=== PATIENT | male | born 1955 | race Caucasian/White ===

== ENCOUNTER 2021-03-24 01:29 | Day surgery (SDC) | payer MEDICARE, SELFPAY ==
[2021-03-18 09:01] VITALS: BMI 24.5
--- NOTE | 2021-03-23 17:22 | P.HP_ITS ---
History of Present Illness History of Present Illness Consent: Risks, benefits, and alternatives have been discussed and questions answered. Patient agrees to proceed with procedure. Chief complaint: neoplasm screening Narrative: Krystian Lin is a 65 year old male who was referred for colon cancer screening. His last colonoscopy was about 15 years ago Review of Systems Review of Systems: All systems reviewed & are unremarkable except as noted in HPI and below PMFSH Past Medical History Medical History Anxiety Depression Umbilical hernia Family History Family History Father Acute myocardial infarction Social History Social History Smoking packs per day: 1 Smoking cigarettes per day: 20.0 Years smoked: 5 Smoking pack-years: 5.00 Smoking status: Former smoker Tobacco type: cigarettes Alcohol intake: never Substance use: never Living arrangements: with family Spiritual care concerns: No Meds Home Medications and Allergies Home Medications Medication Instructions Recorded Confirmed Type multivitamin 1 tablet PO DAILY 03/02/21 03/24/21 History Allergies Allergy/AdvReac Type Severity Reaction Status Date / Time No Known Allergies Allergy Mild Verified 03/24/21 07:36 Exam Resp: Auscultation: clear to auscultation bilaterally Cardio: Rate: regular rate Rhythm: regular rhythm GI: GI Palp: Yes Soft to palpation and No Tenderness to palpation present (GI) Assessment and Plan Assessment and plan (1) Screening for colon cancer: Code(s): Z12.11 - Encounter for screening for malignant neoplasm of colon Status: Acute Assessment and Plan: Colonoscopy with possible biopsy or polypectomy or cautery or injection of sub stances.
[2021-03-24 07:37] VITALS: BP 129/75; PULSE 92; RESP 17; TEMP 36.9; O2SAT 98; BMI 25.0
[2021-03-24] MEDS: LACTATED RINGERS 1,000 ML 150 ML IV CONT (07:40)
--- NOTE | 2021-03-24 07:52 | P.PNAN_ITS ---
Anes - Initial Pre Proc Eval Procedure: Operation Date: 03/24/21 08:45 Proposed Procedures p Screening Colonoscopy - Joe Madison MD Date/Time: 03/24/21 07:52 Surgeon: Joe Madison MD Pre Op Diagnosis: neoplasm screening Patient Data Age: 65 Gender: M Height: 1.83 m Weight: 83.8 kg Last Vital Signs Temp 36.9 C 03/24/21 07:37 Pulse 92 03/24/21 07:37 Resp 17 03/24/21 07:37 BP 129/75 03/24/21 07:37 Pulse Ox 98 03/24/21 07:37 Allergies Allergy/AdvReac Type Severity Reaction Status Date / Time No Known Allergies Allergy Mild Verified 03/24/21 07:36 Home Medications Medication Instructions Recorded Confirmed Type multivitamin 1 tablet PO DAILY 03/02/21 03/24/21 History Patient hx anesthesia problems: none Family hx anesthesia problems: none Results Review: All pre-operative results and documents have been reviewed as part of the pre-operative evaluation. [facility]LY [facility] Past Medical History Medical History Anxiety Depression Umbilical hernia Family History Family History Father Acute myocardial infarction Social History Social History Smoking packs per day: 1 Smoking cigarettes per day: 20.0 Years smoked: 5 Smoking pack-years: 5.00 Smoking status: Former smoker Tobacco type: cigarettes Alcohol intake: never Substance use: never Living arrangements: with family Spiritual care concerns: No Anes - Eval Final PreProcedure Day of Procedure 03/24/21 07:52 Patient weight: normal Heart: regular rate and rhythm Lungs: clear to auscultation Airway: Mallampati scale class II Neurological: alert and oriented Last oral intake: >/= 8 hours ASA classification: II Emergent: no Anesthesia type and monitoring: general GIVS and standard monitoring Results Review: All pre-operative results and documents have been reviewed as part of the pre-operative evaluation. Informed Consent: The patient's anesthetic plan and its attendant risks and benefits were discussed with the patient/family/POA. Questions were solicited and answers provided to the satisfaction of the patient/family/POA.
[2021-03-24 09:13] VITALS: BP 79/50; PULSE 74; RESP 20; O2SAT 96
[2021-03-24 09:23] VITALS: BP 82/51; PULSE 67; RESP 16; O2SAT 97
[2021-03-24 09:33] VITALS: BP 110/69; PULSE 87; RESP 20; O2SAT 99
== END 2021-03-24 09:50 | disposition home or self-care (01) ==
PROVIDERS: PCP Internal Medicine; Visit Provider Internal Medicine Gastroenterology
PROC: 0DJD8ZZ Inspection of Lower Intestinal Tract, Via Natural or Artificial Opening Endoscopic (ICD-10-PCS; CPT 45378; principal; 2021-03-24 08:45)
DX: Z12.11 Encounter for screening for malignant neoplasm of colon (principal); D12.5 Benign neoplasm of sigmoid colon; D12.3 Benign neoplasm of transverse colon; K63.5 Polyp of colon; F41.8 Other specified anxiety disorders; Z87.891 Personal history of nicotine dependence
CPT/HCPCS: 45385; 45380; 88305; J2704; J7120

== ENCOUNTER 2024-12-05 00:21 | Day surgery (SDC) | payer MEDICARE, SELFPAY ==
[2024-11-27 09:38] VITALS: BMI 23.7
--- OUTSIDE RECORDS SUMMARY | 2024-12-05 00:24 | XMS_ITS | Clinical Summary ---
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 This disclosure is being madepursuant to the Care Everywhere program and may not contain all information available regarding this patient. Last updated [email or web address] [facility] Allergies No known active allergies Medications * Be aware that medications may not be up to date on this document. Alwaysverify current medications with the patient. aspirin (ASPIRIN) 81 MG chew tablet Take 81 mg by mouth once daily Active Social History Tobacco Use Types Packs/Day Years Used Date Smoking Tobacco: Never Smokeless Tobacco: Never Sex and Gender Information Value Date Recorded Sex Assigned at Not on file Legal Sex Male 3:03 PM CDT Gender Identity Not on file Sexual Orientation Not on file Last Filed Vital Signs Vital Sign Reading Time Taken Comments Blood Pressure 122/80 10/29/2019 5:56 PM CDT Pulse 60 10/29/2019 5:56 PM CDT Temperature 36.7 C (98 F) 10/29/2019 5:56 PM CDT Respiratory Rate 16 10/29/2019 5:56 PM CDT Oxygen Saturation 98% 10/29/2019 5:56 PM CDT Inhaled Oxygen Concentration - - Weight 81.6 kg (180 lb) 10/29/2019 5:56 PM CDT Height 182.9 cm (6') 10/29/2019 5:56 PM CDT Body Mass Index 24.41 10/29/2019 5:56 PM CDT Plan of Treatment Health Maintenance Due Date Last Done Comments COLOGUARD (AGES 45-75) - COL ON CA SCREENING 1955 COLON MONITORING 1955 COLONOSCOPY - COLON CA SCREENING 1955 CT COLONOGRAPHY - COLON CA SCREENING 1955 Colorectal Cancer Screening 1955 FIT - COLON CA SCREENING 1955 FLEX SIG - COLON CA SCREENING 1955 LIPID TESTING 1955 HEPATITIS C SCREENING 07/29/1973 DTAP/TDAP/TD VACCINES (1 - Tdap) 08/02/1974 PNEUMOCOCCAL VACCINE 50+ (1 of 1 - PCV) 08/02/2005 ZOSTER VACCINE (1 of 2) 08/02/2005 DEPRESSION SCREENING 02/21/2024 COVID-19 VACCINE (1 - 2023-2 5 season) 2024 INFLUENZA VACCINE (#1) 2024 Respiratory Syncytial Virus (RSV) Vaccine Pt: or over 60 yrs (1 - 1-dose 75+ series) 08/02/2030 HEPATITIS B VACCINE Aged Out No longe r eligible based on patient's age to complete this topic HIB VACCINE Aged Out No longer eligi ble based on patient's age to complete this topic HPV VACCINE Aged Out No longer eligi ble based on patient's age to complete this topic MENINGOCOCCAL (Group B) VACC INE SHARED DECISION-MAKING Aged Out No longer eligibl e based on patient's age to complete this topic MENINGOCOCCAL GROUPS A/C/Y/W VACCINE Aged Out No longer eligible b ased on patient's age to complete this topic Insurance [facility] MEDICARE AET[employer] Care Teams Diesel Mechanic Apprentice Relationship Specialty Start Date End Date Tayo Aragon DO PCP - General 03/25/21
[2024-12-05 07:02] VITALS: BP 133/73; PULSE 85; RESP 16; TEMP 36.1; O2SAT 97; BMI 24.0
[2024-12-05] MEDS: LACTATED RINGERS 1,000 ML 150 ML IV CONT (07:15)
--- NOTE | 2024-12-05 07:20 | P.PNAN_ITS ---
Anes - Initial Pre Proc Eval Procedure: Operation Date: 12/05/24 08:15 Proposed Procedures p Screening Colonoscopy - Royal Melo MD Date/Time: 12/05/24 07:20 Surgeon: Royal Melo MD Pre Op Diagnosis: Personal history of colon polyps, unspecified Patient Data Age: 69 Gender: M Height: 1.85 m Weight: 82.6 kg Last Vital Signs Temp 96.9 F L 12/05/24 07:02 Pulse 85 12/05/24 07:02 Resp 16 12/05/24 07:02 BP 133/73 12/05/24 07:02 Pulse Ox 97 12/05/24 07:02 O2 Del Method Room Air 12/05/24 07:02 Allergies Allergy/AdvReac Type Severity Reaction Status Date / Time No Known Allergies Allergy Mild Verified 12/05/24 07:01 Home Medications ?Medication ?Instructions ?Recorded ?Confirmed ?Type multivitamin 1 tablet PO DAILY 03/02/21 1 History atorvastatin 10 mg tablet See Rx Instructions .Route 0 05/16/23 12/05/24 Rx .COMPLEX #90 tabs Patient hx anesthesia problems: none Family hx anesthesia problems: none Results Review: All pre-operative results and documents have been reviewed as part of the pre- operative evaluation. [facility] Past Medical History Medical History Anxiety Depression Umbilical hernia Family History Family History Father Acute myocardial infarction Social History Social History Smoking packs per day: 1 Smoking cigarettes per day: 20.0 Years smoked: 5 Smoking pack-years: 5.00 Smoking status: Former smoker Tobacco type: cigarettes Alcohol intake: never Substance use: never Substance use type: does not use Living arrangements: with family Spiritual care concerns: No Anes - Eval Final PreProcedure Day of Procedure 12/05/24 07:20 Patient weight: normal Heart: regular rate and rhythm Lungs: clear to auscultation Airway: Mallampati scale class II Neurological: alert and oriented Last oral intake: >/= 8 hours ASA classification: II Emergent: no Anesthetic plan: proceed Anesthesia type and monitoring: general GIVS and standard monitoring Results Review: All pre-operative results and documents have been reviewed as part of the pre- operative evaluation. Informed Consent: The patient's anesthetic plan and its attendant risks and benefits were discussed with the patient/family/POA. Questions were solicited and answers provided to the satisfaction of the patient/family/POA.
--- NOTE | 2024-12-05 08:20 | PM.IMHP ---
H&P: HPI History of Present Illness Date/Time: 12/05/24 08:20 Chief Complaint: History of colon polyps Narrative: The patient has a history of colonic polyps, the last colonoscopy was Review of Systems Review of Systems: All systems reviewed & are unremarkable except as noted in HPI and below PMFSH Past Medical History Medical History Anxiety Depression Umbilical hernia Family History Family History Father Acute myocardial infarction Social History Social History Smoking packs per day: 1 Smoking cigarettes per day: 20.0 Years smoked: 5 Smoking pack-years: 5.00 Smoking status: Former smoker Tobacco type: cigarettes Alcohol intake: never Substance use: never Substance use type: does not use Living arrangements: with family Spiritual care concerns: No Meds Home Medications and Allergies Home Medications ?Medication ?Instructions ?Recorded ?Confirmed ?Type multivitamin 1 tablet PO DAILY 03/02/21 12/05/24 History atorvastatin 10 mg tablet See Rx Instructions .Route 05/16/23 12/05/24 Rx .COMPLEX #90 tabs Allergies Allergy/AdvReac Type Severity Reaction Status Date / Time No Known Allergies Allergy Mild Verified 12/05/24 07:01 Vital Signs Vital Signs - 24 hr 12/05/24 07:02 Temperature 96.9 F L Pulse Rate 85 Respiratory Rate 16 Blood Pressure 133/73 Pulse Oximetry 97 Oxygen Delivery Room Air Exam Const: General: cooperative and healthy appearing Resp: Effort & Inspection: normal respiratory effort and able to speak in complete sentences Auscultation: clear to auscultation bilaterally Cardio: Rate: regular rate Rhythm: regular rhythm GI: Inspection: normal to inspection GI Palp: No No hepatosplenomegaly present Auscultation: normal bowel sounds Rectal Exam: deferred Skin: General skin exam: normal color Psych: Appearance: grossly normal Mental Status: mental status grossly normal Assessment and Plan Assessment and plan (1) Screening for colon cancer: Code(s): Z12.11 - Encounter for screening for malignant neoplasm of colon Status: Acute Assessment and Plan: The patient is deemed a good candidate for the procedure. Consent signed. Will proceed.
[2024-12-05 08:39] VITALS: BP 101/58; PULSE 73; RESP 17; O2SAT 98
--- NOTE | 2024-12-05 08:39 | S_PTH ---
PATIENT: Krystian Lin LOC: [facility] U#:[id number] AGE/SX: 69/M ROOM: RE12/05/[address]: Royal Melo MD : 1955 BED: DIS: 12/05/2024 SPEC #: [id number] RECD: 12/05/24 09:42 STATUS: BEE REQ #: [id number] ASHLEY: 12/05/24 08:[address]: Royal Melo DEPT: [facility] Surgical RECD BY: Rosetta Reyes ENTERED: 12/05/24 09:45 SP TYPE: Surgical OTHR DR: Tayo Aragon DO Tissues: A - Colon Polypectomy Procedures: Hematoxylin and Eosin Stain Gross and Microscopic Level 4
[2024-12-05 08:49] VITALS: BP 106/62; PULSE 69; RESP 16; O2SAT 98
[2024-12-05 08:59] VITALS: BP 112/70; PULSE 67; RESP 15; O2SAT 99
== END 2024-12-05 09:08 | disposition home or self-care (01) ==
PROVIDERS: PCP Internal Medicine; Referring Provider Internal Medicine Gastroenterology; Visit Provider Internal Medicine Gastroenterology
PROC: 0DJD8ZZ Inspection of Lower Intestinal Tract, Via Natural or Artificial Opening Endoscopic (ICD-10-PCS; CPT 45378; principal; 2024-12-05 08:15)
DX: Z12.11 Encounter for screening for malignant neoplasm of colon (principal); D12.5 Benign neoplasm of sigmoid colon; K64.8 Other hemorrhoids; F41.9 Anxiety disorder, unspecified; F32.A Depression, unspecified; Z87.891 Personal history of nicotine dependence; Z87.19 Personal history of other diseases of the digestive system; Z82.49 Family history of ischemic heart disease and other diseases of the circulatory system
CPT/HCPCS: 45385; 88305; J2003; J2704; J7120